=== PATIENT | male | born 1945 | race Caucasian/White ===

== ENCOUNTER → 2017-11-03 | Outpatient (CLI) | payer MEDICARE ==
--- NOTE | 2017-11-03 16:14 | XR ---
Lumbar spine HISTORY: Low back pain 3 views of the lumbar spine Lumbar vertebral bodies show preserved height and alignment. Bone mineralization is reduced. There is multilevel spondylosis. Loss of disc height present L5-S1 and L1-2. Sclerosis present in the posteri or elements of the lower lumbar spine. There are vascular calcifications are IMPRESSION: Degenerative disc disease. Osteopenia.
== END | disposition home or self-care (01) ==
LOC: RADXRYALE 13:09
PROVIDERS: ATTEND Internal Medicine
DX: M51.36 Other intervertebral disc degeneration, lumbar region (principal); M85.88 Other specified disorders of bone density and structure, other site
CPT/HCPCS: 72100

== ENCOUNTER 2018-07-06 16:02 | Inpatient (IN) | payer MEDICARE ==
[2018-07-06] MEDS ORDERED: SODIUM CHLORIDE 0.9% 1,000 ML IV STA (16:16)
[2018-07-06] MEDS ORDERED: MORPHINE SULFATE 4 MG/ML SYRINGE IV PRN (16:57)
[2018-07-06] MEDS ORDERED: NITROGLYCERIN SL TABS 0.4 MG TAB SUBLINGUAL PRN (16:57)
--- NOTE | 2018-07-06 16:59 | ED ---
Arrhythmia/Palpitations HPI - General Chief Complaint: Arrhythmia/Palpitations Stated Complaint: DIFIBULATOR FIRED Time Seen by Provider: 07/06/18 16:15 Source: patient, RN notes reviewed, old records reviewed Mode of arrival: ambulatory Limitations: no limitations - History of Present Illness Initial Comments: This is a 72-year-old male the ER for evaluation presents today for evaluation regarding near syncopal event the fibrillator firing. Patient also is very short of breath, he is a transfer patient from [facility], [facility] he did have positive history of PE positive current PE. MD Complaint: palpitations -: hour(s) Context: occurred during rest, occurred during exertion, AICD discharge Arrhythmia History: on anti-coagulants, pacemaker Associated Symptoms: chest pain, shortness of breath, near-syncope - Related Data Home Medications Medication Instructions Recorded Confirmed Diltiazem Cd [Cardizem CD] 180 mg PO QAM 02/23/16 07/06/18 Furosemide [Lasix] 20 mg PO BID 02/23/16 07/06/18 Rivaroxaban [Xarelto] 15 mg PO W/BRKFST 07/06/18 07/06/18 Previous Rx's Medication Instructions Recorded Carvedilol [Coreg] 25 mg PO BID #60 tab 06/27/15 Allergies Allergy/AdvReac Type Severity Reaction Status Date / Time No Known Allergies Allergy Verified 07/06/18 17:12 Review of Systems ROS Statement: Those systems with pertinent positive or pertinent negative responses have been documented in the HPI. ROS Other: All systems not noted in ROS Statement are negative. Past Medical History Past Medical History: Myocardial Infarction (non Q-wave), Osteoarthritis (OA) Additional Past Medical History / Comment(s): SEE DR SAXENA'S H&P Last Myocardial Infarction Date:: 07/2014 History of Any Multi-Drug Resistant Organisms: None Reported Past Surgical History: AICD, Appendectomy, Heart Catheterization, Tonsillectomy Past Anesthesia/Blood Transfusion Reactions: No Reported Reaction Type of Cardiac Device: AICD Device Placement Date:: 06/16/15 Past Psychological History: No Psychological Hx Reported Smoking Status: Former smoker Past Alcohol Use History: Rare Past Drug Use History: None Reported - Past Family History Mother Family Medical History: No Reported History Sister(s) Family Medical History: Deep Vein Thrombosis (DVT) General Exam Limitations: no limitations General appearance: alert, in no apparent distress, anxious Head exam: Present: atraumatic, normocephalic, normal inspection Eye exam: Present: normal appearance, PERRL, EOMI. Absent: scleral icterus, conjunctival injection, periorbital swelling ENT exam: Present: normal exam, mucous membranes moist Neck exam: Present: normal inspection. Absent: tenderness, meningismus, lympha denopathy Respiratory exam: Present: normal lung sounds bilaterally. Absent: respiratory distress, wheezes, rales, rhonchi, stridor Cardiovascular Exam: Present: regular rate, normal rhythm, normal heart sounds. Absent: systolic murmur, diastolic murmur, rubs, gallop, clicks GI/Abdominal exam: Present: soft, normal bowel sounds. Absent: distended, tenderness, guarding, rebound, rigid Extremities exam: Present: normal inspection, full ROM, normal capillary refill. Absent: tenderness, pedal edema, joint swelling, calf tenderness Back exam: Present: normal inspection Neurological exam: Present: alert, oriented X3, CN II-XII intact Psychiatric exam: Present: normal affect, normal mood Skin exam: Present: warm, dry, intact, normal color. Absent: rash Course Vital Signs 07/06/18 07/06/18 07/06/18 16:04 17:28 17:29 Temperature 98.0 F Pulse Rate 80 70 75 Pulse Rate [ Pulse Oximetery ] Respiratory 18 18 Rate Blood Pressure 113/100 113/74 Blood Pressure [Right Arm] O2 Sat by Pulse 96 95 Oximetry 07/06/18 07/06/18 07/06/18 17:30 18:00 18:30 Temperature Pulse Rate 72 83 73 Pulse Rate [ Pulse Oximetery ] Respiratory Rate Blood Pressure 114/77 114/93 127/89 Blood Pressure [Right Arm] O2 Sat by Pulse 97 91 L 99 Oximetry 07/06/18 07/06/18 07/06/18 18:43 19:00 19:13 Temperature 98.5 F Pulse Rate 73 87 Pulse Rate [ 80 Pulse Oximetery ] Respiratory 18 Rate Blood Pressure 127/89 144/90 Blood Pressure 131/74 [Right Arm] O2 Sat by Pulse 99 97 Oximetry - Reevaluation(s) Reevaluation #1: Medical record reviewed as well as transferring paperwork Patient informed of multiple findings. Questions answered Medical Decision Making - Medical Decision Making 72 male the ER for evaluation, patient does say for positive fever positive fibular firing. Patient is to be admitted to continue current anticoagulation, breathing treatments as a severe pain control as necessary. - Lab Data Result diagrams: 07/06/18 17:13 07/06/18 17:13 - EKG Data -: EKG Interpreted by Me (EKG shows sinus rhythm rate of 72, NH 152, QRS 90, QTc 446) - Radiology Data Radiology results: report reviewed (Ultrasound appears negative for DVT currently likely PAD), image reviewed Critical Care Time Critical Care Time: Yes Total Critical Care Time: 31 Disposition Clinical Impression: CAD (coronary artery disease), Cardiac defibrillator in place, Defibrillator discharge, Bilateral pulmonary embolism, Near syncope Disposition: ADMITTED IP TO THIS [facility] Condition: Serious Is patient prescribed a controlled substance at d/c from ED?: No
[2018-07-06 17:38] LABS: Basophils % (A) 0 %; Eosinophils # (A) 0.1 k/uL (0-0.7); Eosinophils % (A) 1 %; HCT 46.8 % (39.0-53.0); HGB 14.3 gm/dL (13.0-17.5); Hypochromasia Moderate; Lymphocytes % (A) 9 %; MCH 29.4 pg (25.0-35.0); MCHC 30.5 g/dL (31.0-37.0); MCV 96.4 fL (80.0-100.0); Mean Platelet Volume 6.8; Monocytes % (A) 8 %; Neutrophils # (A) 9.6 k/uL (1.3-7.7); Neutrophils % (A) 79 %; Platelet Count 159 k/uL (150-450); RBC 4.86 m/uL (4.30-5.90); RDW 15.8 % (11.5-15.5); WBC 12.1 k/uL (3.8-10.6)
[2018-07-06 17:45] LABS: Albumin 3.6 g/dL (3.5-5.0); Calcium 8.7 mg/dL (8.4-10.2); Phosphorus 5.2 mg/dL (2.5-4.5); Potassium 4.9 mmol/L (3.5-5.1); Total Bilirubin 0.9 mg/dL (0.2-1.3); Total Protein 6.7 g/dL (6.3-8.2)
--- NOTE | 2018-07-06 19:51 | US ---
EXAMINATION TYPE: US venous doppler duplex LE RT DATE OF EXAM: 07/06/2018 7:39 PM COMPARISON: Right lower extremity venous ultrasound December 01, 2015 CLINICAL HISTORY: Pain. Right leg pain and numbness. SIDE PERFORMED: Right TECHNIQUE: The lower extremity deep venous system is examined utilizing real time linear array sonog clarisa with graded compression, doppler sonography and color-flow sonography. 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 Right Leg: Negative for DVT Grayscale, color doppler, spectral doppler imaging performed of the deep veins of the right lower ext remity. There is normal flow, compressibility, vascular waveforms. IMPRESSION: No acute DVT in the right lower extremity. Technologist notes no visualized flow in por tions of right common femoral and superficial femoral arteries likely product of underlying PAD. Kaelyn elate clinically. Dedicated lower extremity arterial ultrasound or RAY can be performed to further ev aluate.
[2018-07-06 22:25] VITALS: BMI 34.9
[2018-07-07] MEDS ORDERED: RIVAROXABAN 15 MG TAB PO SCH (07:30)
[2018-07-07] MEDS ORDERED: CARVEDILOL 12.5 MG TAB PO SCH (07:30)
[2018-07-07] MEDS ORDERED: DILTIAZEM CD 180 MG CAP.ER.24H PO SCH (09:00)
[2018-07-07] MEDS: ASPIRIN 325 MG TAB PO SCH (09:02)
[2018-07-07] MEDS: RIVAROXABAN 15 MG TAB PO SCH (09:02)
[2018-07-07] MEDS: CARVEDILOL 12.5 MG TAB PO SCH ×2 (09:03→18:27)
[2018-07-07] MEDS: FUROSEMIDE 40 MG TAB PO SCH ×3 (09:03→21:31)
--- NOTE | 2018-07-07 11:25 | P.CRDCN ---
History of Present Illness Consult date: 07/07/18 History of present illness: This is a 72-year-old gentleman with history of ischemic heart disease and ischemic cardiomyopathy. Patient had a cardiac catheterization in [address] Hoang and was found to have total occlusion of the LAD and also right coronary artery. He was advised in [facility] medical the time. Subsequently, patient had a prophylactic AICD implantation. He is being followed with Dr. BRIAN Sun. Patient claims that has been compliant with his medications. Yesterday patient went to [facility] after patient had firing from the AICD 3 at home. Apparently patient woke up in the morning and started having some numbness in the right arm. Patient could not feel anything. He was trying to walk off the sensation and apparently became weak and fell to the ground. He claims that he had firing from the AICD 3. A tight to get up and was unable to get up. He walked to his front porch and apparently one of the tank truck loader help him. Paramedics were called and subsequently was taken to [facility]. He denied any chest pain or shortness of breath. In the [facility] patient had a computed tomography scan because of the high d-dimer. There was evidence of possible pulmonary embolus and also possible clot in the left ventricle. He is advised to be transferred to [facility]. Initially patient refused because of the cost for the ambulance. Finally, he was convinced she was transferred here. Since coming here patient has been stable. His EKG showed sinus rhythm. His cardiac enzymes showed a mildly elevated troponin 2. Most probably from the AICD firing. Patient also had a venous duplex study which did not reveal any significant DVT. There is evidence of possible peripheral vascular disease. By the time patient went to [facility], patient's weakness, numbness in the left leg improved. He claims that he is feeling some tingling sensation now. Patient has been on Xa relto. We'll go ahead and introduce device and get an echocardiogram. A computed tomography scan of the head to be constricted to rule out possibility of any CVA. Patient also minute pulmonary evaluation. Further examination depend upon clinical course Review of Systems REVIEW OF SYSTEMS: CONSTITUTIONAL:. Patient is doing well. No complaints of fever or chills EYES: Denies diplopia, blurring of vision EARS, NOSE, MOUTH, THROAT: Denies headaches, denies sore throat. CARDIOVASCULAR: As per HPI RESPIRATORY: Denies shortness of breath, denies cough. GASTROINTESTINAL: Denies change in appetite, denies abdominal pain, denies diarrhea GENITOURINARY: Denies hematuria, denies infections. MUSKULOSKELETAL: Denies pain, denies swelling. Denies any cramps or claudicat ion INTEGUMENTARY: Denies rash, denies eczema. NEUROLOGICAL: Complains of mild numbness and tingling in the right leg PSYCHIATRIC: Denies anxiety, denies depression. HEMATOLOGIC/LYMPHATIC: Denies any bleeding, denies enlarged lymph nodes. Past Medical History Past Medical History: Myocardial Infarction (non Q-wave), Osteoarthritis (OA) Additional Past Medical History / Comment(s): SEE DR SAXENA'S H&P Last Myocardial Infarction Date:: 07/2014 History of Any Multi-Drug Resistant Organisms: None Reported Past Surgical History: AICD, Appendectomy, Heart Catheterization, Tonsillectomy Past Anesthesia/Blood Transfusion Reactions: No Reported Reaction Type of Cardiac Device: AICD Device Placement Date:: 06/16/15 Past Psychological History: No Psychological Hx Reported Smoking Status: Former smoker Past Alcohol Use History: Rare Past Drug Use History: None Reported - Past Family History Mother Family Medical History: No Reported History Sister(s) Family Medical History: Deep Vein Thrombosis (DVT) Medications and Allergies Home Medications Medication Instructions Recorded Confirmed Type Carvedilol [Coreg] 25 mg PO BID #60 tab 06/27/15 07/06/18 Rx Diltiazem Cd [Cardizem CD] 180 mg PO QAM 02/23/16 07/06/18 History Furosemide [Lasix] 20 mg PO BID 02/23/16 07/06/18 History Rivaroxaban [Xarelto] 15 mg PO W/BRKFST 07/06/18 07/06/18 History Allergies Allergy/AdvReac Type Severity Reaction Status Date / Time No Known Allergies Allergy Verified 07/06/18 17:12 Physical Exam Vitals: Vital Signs Temp Pulse Pulse Resp BP BP Pulse Ox 07/07/18 08:00 98.4 F 78 18 112/63 97 07/07/18 04:00 97.9 F 82 18 129/65 95 07/06/18 23:51 79 18 126/60 96 07/06/18 20:00 98 F 77 18 135/72 95 07/06/18 19:19 98.0 F 87 18 144/90 99 07/06/18 19:13 98.5 F 80 18 131/74 97 07/06/18 19:00 87 144/90 07/06/18 18:43 73 127/89 99 07/06/18 18:30 73 127/89 99 07/06/18 18:00 83 114/93 91 L 07/06/18 17:30 72 114/77 97 07/06/18 17:29 75 18 113/74 95 07/06/18 17:28 70 07/06/18 16:04 98.0 F 80 18 113/100 96 Intake and Output 07/06/18 07/07/18 07/07/18 22:59 06:59 14:59 Intake Total 0 300 Balance 0 300 Intake: IV 300 Sodium Chloride 0.9% 1, 300 000 ml @ 100 mls/hr IV . Q10H STA Rx#:[id number] Amount of Fluid Infused ( 0 ml) Other: Weight 92.397 kg 90.9 kg GENERAL EXAM: Patient is alert and oriented and doesn't appear to be in any a cute distress HEENT: Normocephalic. Normal reaction of pupils, equal size, normal range of extraocular motion. No erythema or exudates in the throat. NECK: No masses, no nuchal rigidity. CHEST: No chest wall deformity. LUNGS: Equal air entry with no crackles or wheeze. Scattered rhonchi HEART: S1 and S2 normal with no audible mumurs or gallops. Regular rhythm, femorals equal on both sides.. ABDOMEN: No hepatosplenomegaly, normal bowel sounds, no guarding or rigidity. SKIN: No rashes CENTRAL NERVOUS SYSTEM: No focal deficits. EXTREMITIES: No cyanosis, clubbing or edema. Results 07/06/18 17:13 07/06/18 17:13 Cardiac Enzymes 07/06/18 07/06/18 07/06/18 Range/Units 17:13 17:13 23:42 AST 33 (17-59) U/L Troponin I 0.926 H* 0.655 H* (0.000-0.034) ng/mL CBC 07/06/18 Range/Units 17:13 WBC 12.1 H (3.8-10.6) k/uL RBC 4.86 (4.30-5.90) m/uL Hgb 14.3 (13.0-17.5) gm/dL Hct 46.8 (39.0-53.0) % Plt Count 159 (150-450) k/uL Comprehensive Metabolic Panel 07/06/18 Range/Units 17:13 Sodium 142 (137-145) mmol/L Potassium 4.9 (3.5-5.1) mmol/L Chloride 106 (98-107) mmol/L Carbon Dioxide 29 (22-30) mmol/L BUN 24 H (9-20) mg/dL Creatinine 1.14 (0.66-1.25) mg/dL Glucose 89 (74-99) mg/dL Calcium 8.7 (8.4-10.2) mg/dL AST 33 (17-59) U/L ALT 33 (21-72) U/L Alkaline Phosphatase 81 (38-126) U/L Total Protein 6.7 (6.3-8.2) g/dL Albumin 3.6 (3.5-5.0) g/dL Current Medications Generic Name Dose Route Start Last Admin Trade Name Freq PRN Reason Stop Dose Admin Aspirin 325 mg 07/07/18 09:00 07/07/18 09:02 Aspirin PO 325 mg DAILY HILARY Administration Carvedilol 25 mg 07/07/18 08:00 07/07/18 09:03 Coreg PO 25 mg AC-BID HILARY Administration Diltiazem HCl 180 mg 07/07/18 09:00 07/07/18 09:02 Cardizem Cd PO 180 mg QAM HILARY Administration Furosemide 20 mg 07/07/18 09:00 07/07/18 09:03 Lasix PO 20 mg BID HILARY Administration Morphine Sulfate 4 mg 07/06/18 16:57 Morphine Sulfate (Inj) IV Q4HR PRN Chest Pain Nitroglycerin 0.4 mg 07/06/18 16:57 Nitrostat SUBLINGUAL Q5M PRN Chest Pain Rivaroxaban 15 mg 07/07/18 08:00 07/07/18 09:02 Xarelto PO 15 mg W/BRKFST HILARY Administration Intake and Output 07/06/18 07/07/18 07/07/18 22:59 06:59 14:59 Intake Total 0 300 Balance 0 300 Intake: IV 300 Sodium Chloride 0.9% 1, 300 000 ml @ 100 mls/hr IV . Q10H STA Rx#:[id number] Amount of Fluid Infused ( 0 ml) Other: Weight 92.397 kg 90.9 kg 07/06/18 17:13 07/06/18 17:13 EKG Interpretations (text) Sinus rhythm with possible old anterior and inferior wall SC Assessment and Plan (1) Bilateral pulmonary embolism Current Visit: Yes Status: Acute Code(s): I26.99 - OTHER PULMONARY EMBOLISM WITHOUT ACUTE COR PULMONALE SNOMED Code(s): 93219794 (2) CAD (coronary artery disease) Current Visit: Yes Status: Acute Code(s): I25.10 - ATHSCL HEART DISEASE OF [place] CORONARY ARTERY W/O ANG PCTRS SNOMED Code(s): 04680277 (3) Defibrillator discharge Current Visit: Yes Status: Acute Code(s): Z45.02 - ENCNTR FOR ADJUST AND MGMT OF AUTOMATIC IMPLNTBL CARD DEFIB SNOMED Code(s): 957539322 (4) Afib Current Visit: No Status: Acute Code(s): I48.91 - UNSPECIFIED ATRIAL FIBRILL ATION SNOMED Code(s): 99349871 (5) Cardiomyopathy Current Visit: No Status: Acute Code(s): I42.9 - CARDIOMYOPATHY, UNSPECIFIED SNOMED Code(s): 90631148 (6) HTN (hypertension) Current Visit: No Status: Acute Code(s): I10 - ESSENTIAL (PRIMARY) HYPERTENSION SNOMED Code(s): 60736327 Plan: Pulmonary evaluation for further managemen of Pulmonary emboli, in spite of being on anti-cognition therapy. We'll Interrogate the device to assess the nature of her AICD discharge. We'll get an echocardiogram to assess LV function. May consider neurology evaluation because of weakness and numbness in the right leg. Consider computed tomography scan of the head. Further recommendations depend upon the clinical course.
[2018-07-07] MEDS ORDERED: MORPHINE ORAL SOLN 10 MG/5 ML CUP PO PRN (12:00)
--- NOTE | 2018-07-07 12:33 | ECHOF ---
Referral Reason:Chest pain and cardiomyopathy MEASUREMENTS -------- HEIGHT: 162.6 cm WEIGHT: 90.7 kg BP: 99/54 RVIDd: 3.6 cm (< 3.3) IVSd: 0.8 cm (0.6 - 1.1) LVIDd: 5.4 cm (3.9 - 5.3) LVPWd: 0.8 cm (0.6 - 1.1) IVSs: 1.0 cm LVIDs: 4.7 cm LVPWs: 1.0 cm LAESV Index (A-L): 30.47 ml/m Ao Diam: 3.4 cm (2.0 - 3.7) AV Cusp: 2.0 cm (1.5 - 2.6) LA Diam: 3.4 cm (2.7 - 3.8) MV E Cirilo: 0.81 m/s MV DecT: 353 ms MV A Cirilo: 0.49 m/s MV E/A Ratio: 1.67 AR PHT: 558 ms RAP: 5.00 mmHg RVSP: 35.55 mmHg FINDINGS -------- Sinus rhythm. Pacerwire seen in RV and RA. This was a technically adequate study. The left ventricular size is normal. Left ventricular wall thickness is normal. Overall left vent ricular systolic function is severely impaired with, an EF between 20 - 25 %. Basal anterior LV wal l motion is akinetic. Mid anterior LV wall motion is akinetic. Mid lateral LV wall motion is ak inetic. Mid inferior LV wall motion is akinetic. Mid anteroseptal LV wall motion is akinetic. Apical anterior LV wall motion is akinetic. Apical lateral LV wall motion is akinetic. Apical inferior LV wall motion is akinetic. Apical septum LV wall motion is akinetic. The right ventricle is mildly enlarged. LA is midly dilated 29-33ml/m2. The right atrial size is normal. Electronic pacemaker lead seen in the right ventricular cavity. 3 ml of Lumason was utilized for enhancement of images. There is mild aortic valve sclerosis. There is [id number] aortic regurgitation. There is no evidence of aortic stenosis. The mitral valve is normal. Mild mitral regurgitation is present. Mild tricuspid regurgitation present. There is mild pulmonary hypertension. The right ventricular systolic pressure, as measured by Doppler, is 35.55mmHg. The pulmonic valve was not well visualized. There is no pulmonic regurgitation present. The aortic root size is normal. Normal inferior vena cava with normal inspiratory collapse consistent with estimated right atrial pre ssure of 5 mmHg. There is no pericardial effusion. CONCLUSIONS -------- 1. Sinus rhythm. 2. This was a technically adequate study. 3. The left ventricular size is normal. 4. Left ventricular wall thickness is normal. 5. Overall left ventricular systolic function is severely impaired with, an EF between 20 - 25 %. 6. Basal anterior LV wall motion is akinetic. 7. Mid anterior LV wall motion is akinetic. 8. Mid lateral LV wall motion is akinetic. 9. Mid inferior LV wall motion is akinetic. 10. Mid anteroseptal LV wall motion is akinetic. 11. Apical anterior LV wall motion is akinetic. 12. Apical lateral LV wall motion is akinetic. 13. Apical inferior LV wall motion is akinetic. 14. Apical septum LV wall motion is akinetic. 15. The right ventricle is mildly enlarged. 16. LA is midly dilated 29-33ml/m2. 17. 3 ml of Lumason was utilized for enhancement of images. 18. There is mild aortic valve sclerosis. 19. There is [id number] aortic regurgitation. 20. Mild mitral regurgitation is present. 21. Mild tricuspid regurgitation present. 22. There is mild pulmonary hypertension. 23. The pulmonic valve was not well visualized. 24. The aortic root size is normal. 25. There is no pericardial effusion. VIDEO PRESENTATION OPERATOR: Ron Powell RDCS
--- NOTE | 2018-07-07 16:38 | P.HPIM ---
History of Present Illness H&P Date: 07/07/18 Chief Complaint: AICD discharge Patient is a 72-year-old male with a known history of ischemic cardiomyopathy ejection fraction 20-25% status post AICD, paroxysmal atrial fibrillation on anticoagulation with xarelto and osteoarthritis initially presented to [facility] with complaints of AICD discharge 3 at home. Patient says that she felt severe squeezing pain at the right calf and leg when he woke up in the morning yesterday. Patient felt numb and could not feel anything. He felt tightness in the leg and could not able to get up and has crawled to the door. At the same time he had AICD discharge 3. Eventually patient reached his porch and was waving to help. One of the milk truck driver help him and EMS was called. Patient was initially taken to [facility]. Patient denied any complaints of chest pain or shortness of breath. EKG done at [facility] showed normal sinus rhythm. No ST-T wave elevation. D-dimer is elevated. Patient had CT angiogram of the chest which showed left upper lobe first branch 2 cm pulmonary embolus and also small lower lobe embolus. There is also concern for apical cardiac thrombus. Patient was also found have 4.2 cm ascending aortic aneurysm. Patient was transferred to [facility] for further management with 2-D echocardiogram and cardiology evaluation. Lower extremity venous duplex scan showed no acute DVT in the right lower extremity. Technologist notes no visualized flow in the portions of right common femoral and superficial femoral arteries likely product of underlying PAD. Troponin 0.926 and 0.655 Review of Systems Constitutional: Patient denies any fever or chills . No generalized weakness or weight loss. Abdomen: Patient denied nausea vomiting and diarrhea and abdominal pain. Cardiovascular: Patient denies any chest pain or short of breath no palpitations. Respiratory: patient denied any cough is from production. No shortness of breath Neurologic: Patient denied any numbness or tingling headache. Musculoskeletal: Patient denies any complaints of joint swelling or deformity. Right calf pain and numbness Skin: Negative Psychiatric: Negative Endocrine: No heat or cold intolerance. No recent weight gain. Genitourinary: No dysuria or hematuria. All other 14 point ROS negative except the above Past Medical History Past Medical History: Myocardial Infarction (non Q-wave), Osteoarthritis (OA) Additional Past Medical History / Comment(s): SEE DR SAXENA'S H&P Last Myocardial Infarction Date:: 07/2014 History of Any Multi-Drug Resistant Organisms: None Reported Past Surgical History: AICD, Appendectomy, Heart Catheterization, Tonsillectomy Past Anesthesia/Blood Transfusion Reactions: No Reported Reaction Type of Cardiac Device: AICD Device Placement Date:: 06/16/15 Past Psychological History: No Psychological Hx Reported Smoking Status: Former smoker Past Alcohol Use History: Rare Past Drug Use History: None Reported - Past Family History Mother Family Medical History: No Reported History Sister(s) Family Medical History: Deep Vein Thrombosis (DVT) Medications and Allergies Home Medications Medication Instructions Recorded Confirmed Type Carvedilol [Coreg] 25 mg PO BID #60 tab 06/27/15 07/06/18 Rx Diltiazem Cd [Cardizem CD] 180 mg PO QAM 02/23/16 07/06/18 History Furosemide [Lasix] 20 mg PO BID 02/23/16 07/06/18 History Rivaroxaban [Xarelto] 15 mg PO W/BRKFST 07/06/18 07/06/18 History Allergies Allergy/AdvReac Type Severity Reaction Status Date / Time No Known Allergies Allergy Verified 07/06/18 17:12 Physical Exam Vitals: Vital Signs Temp Pulse Pulse Resp BP BP Pulse Ox 07/07/18 04:00 97.9 F 82 18 129/65 95 07/06/18 23:51 79 18 126/60 96 07/06/18 20:00 98 F 77 18 135/72 95 07/06/18 19:19 98.0 F 87 18 144/90 99 07/06/18 19:13 98.5 F 80 18 131/74 97 07/06/18 19:00 87 144/90 07/06/18 18:43 73 127/89 99 07/06/18 18:30 73 127/89 99 07/06/18 18:00 83 114/93 91 L 07/06/18 17:30 72 114/77 97 07/06/18 17:29 75 18 113/74 95 07/06/18 17:28 70 07/06/18 16:04 98.0 F 80 18 113/100 96 Intake and Output 07/06/18 07/07/18 07/07/18 22:59 06:59 14:59 Intake Total 0 300 Balance 0 300 Intake: IV 300 Sodium Chloride 0.9% 1, 300 000 ml @ 100 mls/hr IV . Q10H STA Rx#:[id number] Amount of Fluid Infused ( 0 ml) Other: Weight 92.397 kg 90.9 kg PHYSICAL EXAMINATION: Patient is lying in the bed comfortably, no acute distress, awake alert and oriented.. HEENT: Normocephalic. Neck is supple. Pupils reactive. Nostrils clear. Oral cavity is moist. Ears reveal no drainage. Neck reveals no JVD, carotid bruits, or thyromegaly. CHEST EXAMINATION: Trachea is central. Symmetrical expansion. Lung lopez clear to auscultation and percussion. CARDIAC: Normal S1, S2 with no gallops. No murmurs ABDOMEN: Soft. Bowel sounds normal. No organomegaly. No abdominal bruits. Extremities: reveal no edema. Right calf tenderness, No clubbing or cyanosis Neurologically awake, alert, oriented x3 with well-coordinated movements. No focal deficits noted Skin: No rash or skin lesions. Psychiatric: Coperative. Nonsuicidal Musculoskeletal: No joint swelling or deformity. Normal range of motion. Results CBC & Chem 7: 07/06/18 17:13 07/06/18 17:13 Labs: Abnormal Lab Results - Last 24 Hours (Table) 07/06/18 07/06/18 07/06/18 Range/Units 17:13 17:13 17:13 WBC 12.1 H (3.8-10.6) k/uL MCHC 30.5 L (31.0-37.0) g/dL RDW 15.8 H (11.5-15.5) % Neutrophils # 9.6 H (1.3-7.7) k/uL BUN 24 H (9-20) mg/dL Phosphorus 5.2 H (2.5-4.5) mg/dL Troponin I 0.926 H* (0.000-0.034) ng/mL 07/06/18 Range/Units 23:42 WBC (3.8-10.6) k/uL MCHC (31.0-37.0) g/dL RDW (11.5-15.5) % Neutrophils # (1.3-7.7) k/uL BUN (9-20) mg/dL Phosphorus (2.5-4.5) mg/dL Troponin I 0.655 H* (0.000-0.034) ng/mL CT scan - chest: report reviewed Venous US: report reviewed Thrombosis Risk Factor Assmnt - DVT/VTE Prophylaxis DVT/VTE Prophylaxis: Pharmacologic Prophylaxis ordered - Choose All That Apply Any of the Below Risk Factors Present?: Yes Each Factor Represents 1 point: Acute OH, Obesity (BMI >25) Other Risk Factors: Yes Each Risk Factor Represents 2 Points: Age 61-74 years Thrombosis Risk Factor Assessment Total Risk Factor Score: 4 Thrombosis Risk Factor Assessment Level: Moderate Risk Assessment and Plan Assessment: Acute left upper lobe 2 cm pulmonary embolus despite being on anticoagulation with xarelto Status post AICD discharge 3 Right lower extremity pain possible peripheral vascular disease. Duplex scan negative for DVT. Ascending aortic aneurysm 4.2 cm Ischemic cardiomyopathy ejection fraction 20%.Status post AICD Previous history of smoking Elevated d-dimer Elevated troponin likely due to AICD firing. Osteoarthritis Plan: Patient will be continued on telemetry monitoring. Continue with anticoagulation. Cardiology is following. Hematology will be consulted due to acute pulmonary embolism despite him being on anticoagulation. 2-D echocardiogram was ordered. AICD interrogation. Lower extremities arterial s tudy for peripheral vascular disease and vascular surgery will be consulted. Continue with home medications and further recommendations based on the clinical course. Discussed with the patient and his at bedside in detail. Time with Patient: Greater than 30
[2018-07-07] MEDS: AMIODARONE 200 MG TAB PO SCH (16:41)
[2018-07-08] MEDS: AMIODARONE 200 MG TAB PO SCH ×4 (00:22→21:34)
[2018-07-08] MEDS: CARVEDILOL 12.5 MG TAB PO SCH ×2 (05:59→18:11)
[2018-07-08] MEDS: RIVAROXABAN 15 MG TAB PO SCH (06:16)
[2018-07-08 07:19] LABS: Basophils % (A) 0 %; Eosinophils # (A) 0.2 k/uL (0-0.7); Eosinophils % (A) 2 %; HCT 40.3 % (39.0-53.0); HGB 12.2 gm/dL (13.0-17.5); Hypochromasia Moderate; Lymphocytes # (A) 0.9 k/uL (1.0-4.8); Lymphocytes % (A) 10 %; MCH 29.3 pg (25.0-35.0); MCHC 30.2 g/dL (31.0-37.0); MCV 96.8 fL (80.0-100.0); Mean Platelet Volume 7.3; Monocytes # (A) 0.9 k/uL (0-1.0); Monocytes % (A) 10 %; Neutrophils % (A) 76 %; Platelet Count 149 k/uL (150-450); RBC 4.16 m/uL (4.30-5.90); RDW 15.6 % (11.5-15.5); WBC 9.2 k/uL (3.8-10.6)
[2018-07-08 07:35] LABS: Calcium 8.8 mg/dL (8.4-10.2); Potassium 5.3 mmol/L (3.5-5.1)
[2018-07-08] MEDS: ASPIRIN 325 MG TAB PO SCH (10:06)
[2018-07-08] MEDS: FUROSEMIDE 40 MG TAB PO SCH (10:06)
--- NOTE | 2018-07-08 13:44 | CONS ---
CONSULTATION This is a pulmonary critical care consult dated July 08, 2018. This is a 72-year-old male who was admitted to the hospital from [place] for some issues with his leg. He apparently states that he was sitting in his chair taking taking a snooze and when he woke up to move about, he felt like his leg was numb or . The patient states that for that reason he went into the hospital to be evaluated. The patient really denies any other complaints including shortness of breath, chest tightness, wheezing, cough or phlegm production. No fever or chills. No nausea, vomiting or diarrhea. Apparently on the way to the hospital, his defibrillator went off a couple times and for that reason he was evaluated in the emergency room for that and for the leg issue. The patient apparently had a CT angiogram over at [facility] which showed pulmonary emboli in the left lung x2. Anyway, the patient had been on Xarelto and is recently being switched over to Eliquis. There is some question as to whether or not he has been compliant with the Xarelto and that may have led to the pulmonary embolism. Anyway, the patient was started on Eliquis today. It is unusual that he would have a blood clot developed while on blood thinner. It may be that he was not taking it as prescribed. Again, he denies all other complaints including shortness of breath, chest pain, chest discomfort, palpitations, cough, wheezing and phlegm production. HOME MEDICATIONS: His home medications include Cardizem CD, Lasix, Xarelto, and Coreg. ALLERGIES: Allergies are denied. PAST MEDICAL HISTORY: His past medical history includes non ST-segment elevation myocardial infarction, DJD, previous AICD placement, appendectomy, heart catheterization, and tonsillectomy. He apparently has a very low ejection fraction and does also have a history of atrial fibrillation. SURGICAL HISTORY: As mentioned above. SOCIAL HISTORY: Social history is positive for previous tobacco use. Does not smoke currently. Alcohol use is rare. There is no illicit drug use. FAMILY HISTORY: There is a family history of deep venous thrombosis. The patient is not a particularly good historian and goes on and on about all sorts of unnecessary parts of the history. It is hard to keep him focused. REVIEW OF SYSTEMS: CONSTITUTIONAL: Negative. NEUROLOGIC: Leg numbness of the right leg, sort of a sensation. HEENT: Negative. CARDIOVASCULAR: Defibrillator discharge x2 or 3. PULMONARY: Negative. GI: Negative. : Negative. RHEUMATOLOGIC: Negative. IMMUNOLOGIC: Negative. ENDOCRINOLOGIC: Negative. DERMATOLOGIC: Negative. PHYSICAL EXAMINATION: Current vital signs are reviewed. Temperature is 98, heart rate 58, respiratory rate 18, blood pressure 103/69, mean 80 and 2 L saturation 98%. The patient appears in no acute distress. HEENT examination is grossly unremarkable. The patient is not requiring any supplemental oxygen. NECK: Supple. Full range of motion. No adenopathy or thyromegaly. Neck veins are flat. Cardiovascular examination reveals regular rhythm and rate. S1, S2 normal. A soft systolic murmur is noted. Lungs are clear. Breath sounds equal. No wheezes, rhonchi, or crackles. Abdomen is obese. Bowel sounds are heard. Extremities are intact. No cyanosis, clubbing, or edema. Skin without rash. Neurologic examination is brief but nonfocal. He does mention that he had a sensation that when the nurse gave him pills to take this morning in his left hand, his left hand felt weird to him. Labs are reviewed. White count 9.2, hemoglobin 12.2, hematocrit 40.3, platelet count 149,000. Sodium 139, potassium 5.3, chloride 102, CO2 is 31, BUN and creatinine were 38 and 1.63. Troponins were 0.926 and 0.655. The rest of the labs look okay. The patient had a venous Doppler study which was negative for DVT. The CT angiogram from the [facility] was reviewed. ASSESSMENT: 1. Pulmonary emboli, left lung x2, in a patient who was presumably on Xarelto, although there is some question as to his compliance. 2. Status post AICD placement. 3. Previous cardiac catheterization. 4. Cardiomyopathy. 5. History of chronic atrial fibrillation. 6. History of degenerative joint disease. 7. History of hypertension. PLAN: The patient currently is being switched from Xarelto to Eliquis. We will continue to follow. The Doppler study was negative for DVT in the right leg. He denies any long trips including car rides, boat ride, plane ride or train ride. The patient denies ever having a blood clot in the past. There is some mention of it in his medical record. He denies it though. There is some question as to whether or not the patient was taking the Xarelto as prescribed. Apparently, the did not dole out his medication. Anyway, the patient is somewhat of a poor historian. We explained to him the importance of taking his medication on a regular basis. He needs to take the blood thinner anyway because of his cardiomyopathy and atrial fibrillation. He should be on blood thinner probably for the rest of his life at this point. He is not having any respiratory issues at this time. We will continue to follow as needed. MMSAVANAL / IJN: [id number] / TOM
--- NOTE | 2018-07-08 13:45 | P.PN ---
Subjective Progress Note Date: 07/08/18 This is a 72-year-old gentleman with history of ischemic heart disease and ischemic cardiomyopathy. Patient had a cardiac catheterization [place] [address] Hoang and was found to have total occlusion of the LAD and also right coronary artery. He was advised in [facility] the time. Subsequently, mila alaniz had a prophylactic AICD implantation. He is being followed with Dr. BRIAN Sun. Patient claims that has been compliant with his medications. Yesterday patient went to [facility] after patient had firing from the AICD 3 at home. Apparently patient woke up in the morning and started having some numbness in the right arm. Patient could not feel anything. He was trying to walk off the sensation and apparently became weak and fell to the ground. He claims that he had firing from the AICD 3. A tight to get up and was unable to get up. He walked to his front porch and apparently one of the septic pump truck driver help him. Paramedics were called and subsequently was taken to [facility]. He denied any chest pain or shortness of breath. In the [facility] patient had a computed tomography scan because of the high d-dimer. There was evidence of possible pulmonary embolus and also possible clot in the left ventricle. He is advised to be transferred to [facility]. Initially patient refused because of the cost for the ambulance. Finally, he was convinced she was transferred here. Since coming here patient has been stable. His EKG showed sinus rhythm. His cardiac enzymes showed a mildly elevated troponin 2. Most probably from the AICD firing. Patient also had a venous duplex study which did not reveal any significant DVT. There is evidence of possible peripheral vascular disease. By the time patient went to [facility], patient's weakness, numbness in the left leg improved. He claims that he is feeling some tingling sensation now. Patient has been on Xarelto. We'll go ahead and introduce device and get an echocardiogram. A computed tomography scan of the head to be constricted to rule out possibility of any CVA. Patient also minute pulmonary evaluation. Further examination depend upon clinical course. 07/08/2018 Patient was seen and examined this morning, still complains of intermittent tingling in the right leg. Blood pressure 103/70 with a heart rate in the 50s, 90% on 2 L of oxygen. White blood cell count 9.2, hemoglobin 12.2, platelet count 149. Sodium 139, potassium 5.3, BUN 38 and creatinine 1.6, creatinine yesterday was 1.1. Echocardiogram with Doppler study revealed an ejection fraction of 20-25%, no evidence of any thrombus. Device was interrogated and showed atrial fibrillation with rapid ventricular response, patient was shocked for A. fib. Upon review of the rhythm strips, it does appear that the patient had another episode briefly of atrial fibrillation. We did have a discussion with oncology today regarding initiating anticoagulation, and they have given approval for the patient to be started on Eliquis. Patient was on a low-dose of Xarelto 15 mg daily at home, but we are quite unsure as to whether the patient was safely taking his medication or not. We will start the patient on Eliquis twice a day here for anticoagulation. Objective - Vital Signs Vital signs: Vital Signs Temp 98.0 F 07/08/18 11:45 Pulse 58 L 07/08/18 11:45 Resp 18 07/08/18 11:45 BP 103/69 07/08/18 11:45 Pulse Ox 98 07/08/18 11:45 Intake & Output 07/07/18 07/08/18 07/08/18 18:59 06:59 18:59 Intake Total 600 840 Output Total 200 Balance 400 840 Weight 91.6 kg Intake: Oral 600 840 Output: Urine 200 Other: # Voids 1 1 2 - Exam GENERAL EXAM: Patient is alert and oriented and doesn't appear to be in any acute distress HEENT: Normocephalic. Normal reaction of pupils, equal size, normal range of extraocular motion. No erythema or exudates in the throat. NECK: No masses, no nuchal rigidity. CHEST: No chest wall deformity. LUNGS: Equal air entry with no crackles or wheeze. Scattered rhonchi HEART: S1 and S2 normal with no audible mumurs or gallops. Regular rhythm, femorals equal on both sides.. ABDOMEN: No hepatosplenomegaly, normal bowel sounds, no guarding or rigidity. SKIN: No rashes CENTRAL NERVOUS SYSTEM: No focal deficits. EXTREMITIES: No cyanosis, clubbing or edema. - Labs CBC & Chem 7: 07/08/18 06:04 07/08/18 06:04 Labs: Abnormal Lab Results - Last 24 Hours (Table) 07/08/18 07/08/18 Range/Units 06:04 06:04 RBC 4.16 L (4.30-5.90) m/uL Hgb 12.2 L (13.0-17.5) gm/dL MCHC 30.2 L (31.0-37.0) g/dL RDW 15.6 H (11.5-15.5) % Plt Count 149 L (150-450) k/uL Lymphocytes # 0.9 L (1.0-4.8) k/uL Potassium 5.3 H (3.5-5.1) mmol/L Carbon Dioxide 31 H (22-30) mmol/L BUN 38 H (9-20) mg/dL Creatinine 1.63 H (0.66-1.25) mg/dL LDL Cholesterol, Calc 100 H (0-99) mg/dL HDL Cholesterol 29 L (40-60) mg/dL Assessment and Plan Plan: Assessment and plan #1 bilateral pulmonary embolism, we will consult pulmonary to confirm #2 coronary artery disease #3 AICD discharge for A. fib with RVR #4 paroxysmal atrial fibrillation #5 ischemic cardiomyopathy #6 hypertension Plan We will start the patient on Eliquis 5 mg one tablet by mouth twice a day. We will also recommend to consult pulmonary regarding pulmonary embolism. Lower extremity ultrasound was performed which is yet pending. Continue by mouth amiodarone, we will decrease the dose of Coreg to 12-1/2 mg one tablet by mouth twice a day today because of hypotension. DNP note has been reviewed, I agree with a documented findings and plan of care. Patient was seen and examined.
--- NOTE | 2018-07-08 14:33 | P.PN ---
Subjective Progress Note Date: 07/08/18 This is a 72-year-old gentleman with history of ischemic heart disease and ischemic cardiomyopathy. Patient had a cardiac catheterization [place] [address] Hoang and was found to have total occlusion of the LAD and also right coronary artery. He was advised in [facility] the time. Subsequently, mila alaniz had a prophylactic AICD implantation. He is being followed with Dr. BRIAN Sun. Patient claims that has been compliant with his medications. Yesterday patient went to [facility] after patient had firing from the AICD 3 at home. Apparently patient woke up in the morning and started having some numbness in the right arm. Patient could not feel anything. He was trying to walk off the sensation and apparently became weak and fell to the ground. He claims that he had firing from the AICD 3. A tight to get up and was unable to get up. He walked to his front porch and apparently one of the truck trailer mechanic help him. Paramedics were called and subsequently was taken to [facility]. He denied any chest pain or shortness of breath. In the [facility] patient had a computed tomography scan because of the high d-dimer. There was evidence of possible pulmonary embolus and also possible clot in the left ventricle. He is advised to be transferred to [facility]. Initially patient refused because of the cost for the ambulance. Finally, he was convinced she was transferred here. Since coming here patient has been stable. His EKG showed sinus rhythm. His cardiac enzymes showed a mildly elevated troponin 2. Most probably from the AICD firing. Patient also had a venous duplex study which did not reveal any significant DVT. There is evidence of possible peripheral vascular disease. By the time patient went to [facility], patient's weakness, numbness in the left leg improved. He claims that he is feeling some tingling sensation now. Patient has been on Xarelto. We'll go ahead and introduce device and get an echocardiogram. A computed tomography scan of the head to be constricted to rule out possibility of any CVA. Patient also minute pulmonary evaluation. Further examination depend upon clinical course. 07/08/2018 Patient was seen and examined today, we did have a discussion with him regarding regularly taking his medications at home. According to the patient he does state that at times he does not take his medications and sometimes a fall on the floor and he just doesn't take them. So it is unclear as to whether or not the patient had been regularly taking his Xarelto at home. We would request that pulmonary evaluate the patient regarding the pulmonary embolism. At this time he's been initiated on Eliquis. An echocardiogram with Doppler study was performed which revealed an EF of 20%, no evidence of any thrombus. I pressure 104/60 with a heart rate in the 60s, 98% on 2 L of oxygen. White blood cell count 9.2, hemoglobin 12.2, platelet count 149. Sodium 139, potassium 5.3, BUN 38 and creatinine 1.6 today. We will hold the Lasix from today and resume tomorrow. Decrease aspirin to 81 mg daily. Continue amiodarone. Objective - Vital Signs Vital signs: Vital Signs Temp 98.0 F 07/08/18 11:45 Pulse 58 L 07/08/18 11:45 Resp 18 07/08/18 11:45 BP 103/69 07/08/18 11:45 Pulse Ox 98 07/08/18 11:45 Intake & Output 07/07/18 07/08/18 07/08/18 18:59 06:59 18:59 Intake Total 600 840 Output Total 200 Balance 400 840 Weight 91.6 kg Intake: Oral 600 840 Output: Urine 200 Other: # Voids 1 1 2 - Exam GENERAL EXAM: Patient is alert and oriented and doesn't appear to be in any acute distress HEENT: Normocephalic. Normal reaction of pupils, equal size, normal range of extraocular motion. No erythema or exudates in the throat. NECK: No masses, no nuchal rigidity. CHEST: No chest wall deformity. LUNGS: Equal air entry with no crackles or wheeze. Scattered rhonchi HEART: S1 and S2 normal with no audible mumurs or gallops. Regular rhythm, femorals equal on both sides.. ABDOMEN: No hepatosplenomegaly, normal bowel sounds, no guarding or rigidity. SKIN: No rashes CENTRAL NERVOUS SYSTEM: No focal deficits. EXTREMITIES: No cyanosis, clubbing or edema. - Labs CBC & Chem 7: 07/08/18 06:04 07/08/18 06:04 Labs: Abnormal Lab Results - Last 24 Hours (Table) 07/08/18 07/08/18 Range/Units 06:04 06:04 RBC 4.16 L (4.30-5.90) m/uL Hgb 12.2 L (13.0-17.5) gm/dL MCHC 30.2 L (31.0-37.0) g/dL RDW 15.6 H (11.5-15.5) % Plt Count 149 L (150-450) k/uL Lymphocytes # 0.9 L (1.0-4.8) k/uL Potassium 5.3 H (3.5-5.1) mmol/L Carbon Dioxide 31 H (22-30) mmol/L BUN 38 H (9-20) mg/dL Creatinine 1.63 H (0.66-1.25) mg/dL LDL Cholesterol, Calc 100 H (0-99) mg/dL HDL Cholesterol 29 L (40-60) mg/dL Assessment and Plan Plan: Assessment and plan #1 bilateral pulmonary embolism, we will consult pulmonary to confirm #2 coronary artery disease #3 AICD discharge for A. fib with RVR #4 paroxysmal atrial fibrillation #5 ischemic cardiomyopathy #6 hypertension #7 medication noncompliance Plan From cardiology's perspective, we'll recommend to continue amiodarone, we will decrease aspirin 81 mg daily, patient will be initiated on Eliquis. DNP note has been reviewed, I agree with a documented findings and plan of care. Patient was seen and examined.
--- NOTE | 2018-07-08 23:26 | P.CONS ---
History of Present Illness - Reason for Consult Consult date: 07/08/18 Pulmonary Emoboli while on Anticoagulation Requesting physician: Kaylee Odell - Chief Complaint RLE Pain and weakness Review of Systems A 14 point review of systems assessed and completed and all negative except HPI Past Medical History Past Medical History: Myocardial Infarction (non Q-wave), Osteoarthritis (OA) Additional Past Medical History / Comment(s): SEE DR SAXENA'S H&P Last Myocardial Infarction Date:: 07/2014 History of Any Multi-Drug Resistant Organisms: None Reported Past Surgical History: AICD, Appendectomy, Heart Catheterization, Tonsillectomy Past Anesthesia/Blood Transfusion Reactions: No Reported Reaction Type of Cardiac Device: AICD Device Placement Date:: 06/16/15 Past Psychological History: No Psychological Hx Reported Smoking Status: Former smoker Past Alcohol Use History: Rare Past Drug Use History: None Reported - Past Family History Mother Family Medical History: No Reported History Sister(s) Family Medical History: Deep Vein Thrombosis (DVT) Medications and Allergies Home Medications Medication Instructions Recorded Confirmed Type Carvedilol [Coreg] 25 mg PO BID #60 tab 06/27/15 07/06/18 Rx Diltiazem Cd [Cardizem CD] 180 mg PO QAM 02/23/16 07/06/18 History Furosemide [Lasix] 20 mg PO BID 02/23/16 07/06/18 History Rivaroxaban [Xarelto] 15 mg PO W/BRKFST 07/06/18 07/06/18 History Allergies Allergy/AdvReac Type Severity Reaction Status Date / Time No Known Allergies Allergy Verified 07/06/18 17:12 Physical Exam Vitals: Vital Signs Temp Pulse Resp BP Pulse Ox 07/08/18 20:00 99.3 F 57 L 17 90/52 97 07/08/18 15:35 98.4 F 70 18 107/68 96 07/08/18 11:45 98.0 F 58 L 18 103/69 98 07/08/18 08:15 97.7 F 59 L 18 100/59 98 07/08/18 03:08 98.2 F 60 18 95/62 98 Intake and Output 07/08/18 07/08/18 07/09/18 14:59 22:59 06:59 Intake Total 840 180 Output Total 300 200 Balance 540 -20 Intake: Oral 840 180 Output: Urine 300 200 Other: # Voids 2 Gen: No acute distress, alert and oriented Head: NC/NT NEck Supple HEart: Irreg, Irreg Lungs: DIminished bibasilar, no increased effort Abdomen: SOft, Nondistended, Non tender Extremities: Mild generalized edema neurological: No motor deficits, RLE Sensory worse than LLE Results CBC & Chem 7: 07/08/18 06:04 07/08/18 06:04 Labs: Abnormal Lab Results - Last 24 Hours (Table) 07/08/18 07/08/18 Range/Units 06:04 06:04 RBC 4.16 L (4.30-5.90) m/uL Hgb 12.2 L (13.0-17.5) gm/dL MCHC 30.2 L (31.0-37.0) g/dL RDW 15.6 H (11.5-15.5) % Plt Count 149 L (150-450) k/uL Lymphocytes # 0.9 L (1.0-4.8) k/uL Potassium 5.3 H (3.5-5.1) mmol/L Carbon Dioxide 31 H (22-30) mmol/L BUN 38 H (9-20) mg/dL Creatinine 1.63 H (0.66-1.25) mg/dL LDL Cholesterol, Calc 100 H (0-99) mg/dL HDL Cholesterol 29 L (40-60) mg/dL Assessment and Plan Plan: Assessment and Recommendations: 1. Pulmonary Emboli: New findings diagnosed at outside Hospital - While on Xarelto 15mg PO Daily, unknown failure as unknown on how adherent as he states he does not know if he actually takes them daily - LE dopplers pending - Will change to full dose anticoagulation with Eliquis 10mg PO BID x7 days, then 5mg PO BID 2. Acute renal Insufficiency: - ELiquis treatment preferred choice with mild renal elevation - Monitoring daily 3. Complicated Cardiac History with A-fib: - Cardiology is following Physician Attest: I have completed the full history and physical and devloped the complete impression and plan and agree with above dictation, dictated as a scribe
[2018-07-09] MEDS: CARVEDILOL 12.5 MG TAB PO SCH ×2 (07:07→17:40)
[2018-07-09] MEDS: AMIODARONE 200 MG TAB PO SCH ×3 (08:53→21:05)
[2018-07-09] MEDS: ASPIRIN 81 MG PO SCH (08:53)
[2018-07-09] MEDS ORDERED: APIXABAN 5 MG TAB PO SCH (09:00)
--- NOTE | 2018-07-09 11:14 | P.PN ---
Progress Note - Text Progress Note Date: 07/09/18 This is a 72-year-old gentleman with history of ischemic cardiomyopathy, status post AICD placement. Patient was admitted to the hospital with numbness in the right leg and also evidence of firing from AICD. Interrogation of the AICD showed evidence of A. fib with RVR. Patient was initiated on amiodarone. Patient. Computed tomography scan is also showed evidence of pulmonary emboli. Patient was supposed to be on anticoagulation therapy and an Xarelto. It was changed to e liquis 5 mg by mouth twice a day. Patient was evaluated by lcac radar operator/navigator. He is also seen by fiber product cutting machine operator. At this point they advised. Continue with current medical therapy and make sure that patient adheres to a medical therapy. We'll continue amiodarone 200 mg by mouth 3 times a day for one week and subsequently cut back to twice daily for one week followed by once daily. Patient will have follow-up with Dr. BRIAN Sun. His creatinine went up to 1.6 yesterday. In going to get another BMP today. Patient is otherwise doing well. Denies any chest pain or shortness of breath. He had arterial duplex studies of the leg. The results are pending. Vascular consult also was requeste, according to primary care physician. Lab values showed a creatinine of 1.6. His Lasix was held. Repeat blood test to be obtained. GENERAL EXAM: Patient is alert and oriented and doesn't appear to be in any acute distress HEENT: Normocephalic. Normal reaction of pupils, equal size, normal range of extraocular motion. No erythema or exudates in the throat. NECK: No masses, no nuchal rigidity. CHEST: No chest wall deformity. LUNGS: Equal air entry with no crackles or wheeze. HEART: S1 and S2 normal with no audible mumurs or gallops. Regular rhythm, femorals equal on both sides.. ABDOMEN: No hepatosplenomegaly, normal bowel sounds, no guarding or rigidity. SKIN: No rashes CENTRAL NERVOUS SYSTEM: No focal deficits. EXTREMITIES: No cyanosis, clubbing or edema. Final impression: #1. Atypical fibrillation with RVR #2 shocks from AICD and response to A. fib with RVR #3. CAT scan evidence of pulmonary emboli. #4. Increased creatinine. Most probably from diuretics. Plan: We'll check his BMP today. Increase activity. Continue current medical therapy.
[2018-07-09 12:41] LABS: Calcium 8.5 mg/dL (8.4-10.2); Potassium 4.6 mmol/L (3.5-5.1)
--- NOTE | 2018-07-09 13:52 | P.PN ---
Subjective Progress Note Date: 07/09/18 Principal diagnosis: Pulmonary emboli, in the left lung, on oral anticoagulation in the form of delta, AICD discharge 72-year-old white male patient of Dr. Massey into the hospital on 07/06/2018 for complaints of pain and discomfort in his right leg, AICD discharge. Patient had a CT angiogram of the chest in [facility] which showed pulmonary emboli in the left lung 2. Patient had been on oral anticoagulation form of Xarelto, and patient was compliant with his medication according to him. Since admission to the hospital patient had been switched to oral Eliquis. He is hemodynamically stable, these do not feel any acute distress. His shortness of breath, denies chest pain, no chest discomfort, no palpitations. No cough wheezing or phlegm production. Today's on 07/09/2016 patient seen in follow-up on selective care unit, he uses, comfortable, sitting up on the edge of the bed, denies any complaints, ultrasound Doppler of the right lower extremity was negative for DVT. Today's labs have been reviewed, BNP was done only, sodium was 142, potassium is 4.6, chloride is 102, CO2 is 34, B1 is 32 creatinine is 1.13. Sounds reveal a few scattered crackles at the bases, no rhonchi or wheezing. Device has been interrogated, he is on oral amiodarone 200 mg 3 times a day, he follows [facility], he had arterial duplex studies of the leg the results are pending. From our perspective he stable Objective - Vital Signs Vital signs: Vital Signs Temp 98.3 F 07/09/18 12:10 Pulse 61 07/09/18 12:10 Resp 18 07/09/18 12:10 BP 117/68 07/09/18 12:10 Pulse Ox 98 07/09/18 12:10 Intake & Output 07/08/18 07/09/18 07/09/18 18:59 06:59 18:59 Intake Total 1020 480 Output Total 500 300 Balance 520 180 Weight 90.9 kg Intake: Oral 1020 480 Output: Urine 500 300 Other: # Voids 2 1 - Exam GENERAL EXAM: Alert, pleasant, 72-year-old obese white male, comfortable in no apparent distress. HEAD: Normocephalic/atraumatic. EYES: Normal reaction of pupils, equal size. Conjunctiva pink, sclera white. NOSE: Clear with pink turbinates. THROAT: No erythema or exudates. NECK: No masses, no JVD, no thyroid enlargement, no adenopathy. CHEST: No chest wall deformity. Symmetrical expansion. LUNGS: Equal air entry with few bibasilar crackles CVS: Regular rate and rhythm, normal S1 and S2, no gallops, no murmurs, no rubs ABDOMEN: Soft, nontender. No hepatosplenomegaly, normal bowel sounds, no guarding or rigidity. EXTREMITIES: No clubbing, no edema, no cyanosis, 2+ pulses and upper and lower extremities. MUSCULOSKELETAL: Muscle strength and tone normal. SPINE: No scoliosis or deformity SKIN: No rashes CENTRAL NERVOUS SYSTEM: Alert and oriented -3. No focal deficits, tone is normal in all 4 extremities. PSYCHIATRIC: Alert and oriented -3. Appropriate affect. Intact judgment and insight. - Labs CBC & Chem 7: 07/08/18 06:04 07/09/18 11:28 Labs: Abnormal Lab Results - Last 24 Hours (Table) 07/09/18 Range/Units 11:28 Carbon Dioxide 34 H (22-30) mmol/L BUN 32 H (9-20) mg/dL Assessment and Plan Plan: Assessment: #1. Acute pulmonary embolisms, in the left lung 2, on oral anticoagulation as a relative, and presumably patient was compliant with his anticoagulation #2. AICD discharge at home, and interrogation of the ICD was done, and apparently this was in response to A. fib RVR #3. History of chronic atrial fibrillation #4. Numbness and pain in the right lower extremity, venous Doppler ultrasound was negative for DVT, patient has a arterial Doppler, and the results are pending #5. Cardiomyopathy #6. DJD #7. Hypertension Plan: Pulmonary perspective patient remains stable, vital signs are stable, no shortness of breath or chest pain, he has been switched from Xarelto to Eliquis. His venous Doppler of the right lower extremity was negative for DVT, arterial Dopplers were done of right leg in regards to numbness and pain in the right lower extremity. No further recommendations from pulmonary perspective. Stable for discharge when cleared by cardiology I performed a history & physical examination of the patient and discussed their management with my nurse practitioner, Magnolia Cole. I reviewed the nurse practitioner's note and agree with the documented findings and plan of care. Lung sounds are positive for a few scattered rales at the bases. The findings and the impression was discussed with the patient. I attest to the documentation by the nurse practitioner. Time with Patient: Less than 30
--- NOTE | 2018-07-09 14:11 | P.PN ---
Subjective Progress Note Date: 07/09/18 Interval history:Patient is a 72-year-old male with a known history of ischemic cardiomyopathy ejection fraction 20-25% status post AICD, paroxysmal atrial fibrillation on anticoagulation with xarelto and osteoarthritis initially presented to [facility] with complaints of AICD discharge 3 at home. Patient says that she felt severe squeezing pain at the right calf and leg when he woke up in the morning yesterday. Patient felt numb and could not feel anything. He felt tightness in the leg and could not able to get up and has crawled to the door. At the same time he had AICD discharge 3. Eventually patient reached his porch and was waving to help. One of the truck car and bus cleaner help him and EMS was called. Patient was initially taken to [facility]. Patient denied any complaints of chest pain or shortness of breath. EKG done at [facility] showed normal sinus rhythm. No ST-T wave elevation. D- dimer is elevated. Patient had CT angiogram of the chest which showed left upper lobe first branch 2 cm pulmonary embolus and also small lower lobe embolus. There is also concern for apical cardiac thrombus. Patient was also found have 4.2 cm ascending aortic aneurysm. Patient was transferred to [facility] for further management with 2-D echocardiogram and cardiology evaluation. Lower extremity venous duplex scan showed no acute DVT in the right lower extremity. Technologist notes no visualized flow in the portions of right common femoral and superficial femoral arteries likely product of underlying PAD. Troponin 0.926 and 0.655 07/09/18 echo reported severely impaired LV function, EF 20-25%, [id number] aortic regurgitation, mild pulmonary hypertension without evidence of thrombus.Anticoagulated on Eliquis. Maintained on amiodarone. Pacemaker interrogated yesterday, final report pending. Lower extremity ultrasound completed, results pending .Vascular surgery evaluation pending. Lasix held, creatinine significantly improved, 1.13. Evaluated by hematology Objective - Vital Signs Vital signs: Vital Signs Temp 98.3 F 07/09/18 12:10 Pulse 61 07/09/18 12:10 Resp 18 07/09/18 12:10 BP 117/68 07/09/18 12:10 Pulse Ox 98 07/09/18 12:10 Intake & Output 07/08/18 07/09/18 07/09/18 18:59 06:59 18:59 Intake Total 1020 480 Output Total 500 300 Balance 520 180 Weight 90.9 kg Intake: Oral 1020 480 Output: Urine 500 300 Other: # Voids 2 1 - Exam PHYSICAL EXAM: VITAL SIGNS: As above GENERAL: Sitting up at side of bed, no acute distress. HEENT: Conjunctivae normal. eyes normal. Oral mucosa moist. NECK: No JVD. No thyroid enlargement. No LNs CARDIOVASCULAR: S1, S2 muffled. Systolic murmur. RESPIRATION: Breath sounds diminished in the bases. Occasional Fine bibasilar crackles. No rhonchi. ABDOMEN: Soft, nontender . No guarding. no masses palpable.Bowel sounds heard. LEGS: No edema. no swelling, PSYCHIATRY: Alert and oriented -3, mood and affect normal. NERVOUS SYSTEM: Cranial N 2-12 grossly normal. Moves all 4 limbs. No focal deficits. Skin: no rash Joints: No active swelling. No inflammation. - Labs CBC & Chem 7: 07/08/18 06:04 07/09/18 11:28 Labs: Abnormal Lab Results - Last 24 Hours (Table) 07/09/18 Range/Units 11:28 Carbon Dioxide 34 H (22-30) mmol/L BUN 32 H (9-20) mg/dL Assessment and Plan Assessment: Acute left upper lobe 2 cm pulmonary embolus despite being on anticoagulation with xarelto, Status post AICD discharge 3 Right lower extremity pain possible peripheral vascular disease. Duplex scan negative for DVT. Ascending aortic aneurysm 4.2 cm Ischemic cardiomyopathy ejection fraction 20%.Status post AICD Previous history of smoking Elevated d-dimer Elevated troponin likely due to AICD firing. Osteoarthritis Mild to moderate aortic regurgitation Plan: Continue on current medication regime ,monitoring and symptomatic treatment. Vascular consult in place with recommendations pending. Evaluated by hematology with recommendations noted. Anticoagulation with Eliquis. Xa relto failure unclear. Protonix added for GI prophylaxis. Further recommendations to follow. The impression and plan of care has been dictated as directed. : I performed a history and examination of this patient, discussed the same with the dictator. I agree with the dictator's note ,documented as a scribe. Any additional findings or plans will be noted.
[2018-07-09] MEDS ORDERED: PANTOPRAZOLE 40 MG/10 ML VIAL IVP SCH (14:15)
--- NOTE | 2018-07-09 16:36 | XR ---
EXAMINATION TYPE: XR lumbar spine 2 or 3V DATE OF EXAM: 07/09/2018 COMPARISON: 11/03/2017 HISTORY: 72-year-old male with back and leg pain TECHNIQUE: 3 views FINDINGS: 5 lumbar type vertebral bodies. Facet arthropathy mid to lower lumbar spine. Mild multilevel degenera tive disc disease with variable mild disc height loss. Vertebral body heights are preserved and align ment is maintained. Endplate spondylosis noted in the lower thoracic spine and thoracolumbar junction . IMPRESSION: Mild multilevel degenerative disc disease. Facet arthropathy mid to lower lumbar spine. Endplate spon dylosis lower thoracic spine. Osteopenia. No vertebral compression collapse or malalignment.
[2018-07-09] MEDS: PANTOPRAZOLE 40 MG TABLET PO SCH (17:40)
[2018-07-09 18:09] LABS: Basophils % (A) 0 %; Eosinophils # (A) 0.3 k/uL (0-0.7); Eosinophils % (A) 3 %; HCT 41.8 % (39.0-53.0); HGB 12.8 gm/dL (13.0-17.5); Hypochromasia Marked; Lymphocytes # (A) 0.8 k/uL (1.0-4.8); Lymphocytes % (A) 10 %; MCH 29.7 pg (25.0-35.0); MCHC 30.6 g/dL (31.0-37.0); Mean Platelet Volume 6.9; Monocytes # (A) 0.9 k/uL (0-1.0); Monocytes % (A) 10 %; Neutrophils # (A) 6.4 k/uL (1.3-7.7); Neutrophils % (A) 74 %; Platelet Count 173 k/uL (150-450); RBC 4.31 m/uL (4.30-5.90); RDW 15.5 % (11.5-15.5); WBC 8.6 k/uL (3.8-10.6)
--- NOTE | 2018-07-09 18:09 | CONS ---
CONSULTATION This is a 72-year-old male who has been admitted to [facility] with history of ischemic cardiomyopathy with ejection fraction of 20 to 25%. Status post AICD. Atrial fibrillation and on anticoagulation with Xarelto which has been switched to use Eliquis. The patient had pain in his right calf and right leg when he woke up in the morning when he was at home and patient was transferred to [facility]. The patient was transferred to [facility] and the patient had ultrasound which shows no evidence of DVT but femoral and common femoral had occlusion. The patient also was diagnosed with pulmonary embolism. PHYSICAL EXAMINATION: Patient was seen in his room. He has very short of breath and has nasal oxygen. Vascular examination: The brachial radial pulses are present. On the left femoral is 2+. Right side is not palpable. Patient has a faint Doppler on the dorsal pedis on the left foot. Right foot has no Doppler signal, but there is a decent capillary refill. Motor functions are intact. PLAN: Angiogram. Patient is on Eliquis. We may be doing a CT angiogram of the abdomen and pelvis with runoff. The patient under care of Respiratory and Cardiology. We will discuss with hospitalist for further management. Follow with you. Thank you for the consultation. MMSAVANAL / IJN: [id number] /
[2018-07-09 18:21] LABS: INR 1.2 (<1.2); Partial Thromboplastin Time 27.1 sec (22.0-30.0)
[2018-07-09] MEDS ORDERED: HEPARIN SODIUM,PORCINE 5,000 UNIT/ML 1 ML VIAL IV ONE (20:30)
[2018-07-09] MEDS ORDERED: HEPARIN SODIUM,PORCINE 5,000 UNIT/ML 1 ML VIAL IV PRN (20:30)
[2018-07-09] MEDS: HEPARIN SOD,PORK IN 0.45% NACL 25,000 UNIT in 0.45% NACL 1 250ML.BAG IV SCH (20:46)
--- NOTE | 2018-07-09 23:15 | P.PN ---
Subjective Progress Note Date: 07/09/18 Principal diagnosis: New Pulm Emboli Discussed coverage and copay 30$ with patient Objective - Vital Signs Vital signs: Vital Signs Temp 98.3 F 07/09/18 12:10 Pulse 61 07/09/18 12:10 Resp 18 07/09/18 12:10 BP 117/68 07/09/18 12:10 Pulse Ox 98 07/09/18 12:10 Intake & Output 07/08/18 07/09/18 07/09/18 18:59 06:59 18:59 Intake Total 1020 480 Output Total 500 300 Balance 520 180 Weight 90.9 kg Intake: Oral 1020 480 Output: Urine 500 300 Other: # Voids 2 1 - Exam Gen: No Acute distress, Neck Supple HEad NCNT Heart: Irr IRr No palpable Lymphadenopathy Abdomen: obese, soft Lungs: DIminished bases no increased effort Extremities: Edema Bilateral - Labs CBC & Chem 7: 07/09/18 17:45 07/09/18 11:28 Labs: Abnormal Lab Results - Last 24 Hours (Table) 07/09/18 Range/Units 11:28 Carbon Dioxide 34 H (22-30) mmol/L BUN 32 H (9-20) mg/dL Assessment and Plan Plan: Assessment and Recommendations: 1. Pulmonary Emboli: New findings diagnosed at outside Hospital - While on Xarelto 15mg PO Daily, unknown failure as unknown on how adherent as he states he does not know if he actually takes them daily - LE dopplers reviewed - Will change to full dose anticoagulation with Eliquis 10mg PO BID x7 days, then 5mg PO BID 2. Acute renal Insufficiency: - ELiquis treatment preferred choice with mild renal elevation - Monitoring daily 3. Complicated Cardiac History with A-fib: - Cardiology is following Education to and patient on Eliquis and the importance of adherence. Understanding stated, remediation likely needed Physician Attest: I have completed the full history and physical and devloped the complete impression and plan and agree with above dictation, dictated as a scribe
[2018-07-10 03:57] LABS: Basophils % (A) 1 %; Eosinophils # (A) 0.3 k/uL (0-0.7); Eosinophils % (A) 4 %; HCT 38.4 % (39.0-53.0); HGB 11.9 gm/dL (13.0-17.5); Hypochromasia Marked; Lymphocytes # (A) 0.9 k/uL (1.0-4.8); Lymphocytes % (A) 12 %; MCHC 31.1 g/dL (31.0-37.0); MCV 96.6 fL (80.0-100.0); Mean Platelet Volume 7.1; Monocytes # (A) 0.8 k/uL (0-1.0); Monocytes % (A) 11 %; Neutrophils # (A) 5.5 k/uL (1.3-7.7); Neutrophils % (A) 70 %; Platelet Count 150 k/uL (150-450); RBC 3.98 m/uL (4.30-5.90); RDW 15.6 % (11.5-15.5); WBC 7.8 k/uL (3.8-10.6)
[2018-07-10] MEDS: CARVEDILOL 12.5 MG TAB PO SCH ×2 (06:47→17:59)
[2018-07-10] MEDS: PANTOPRAZOLE 40 MG TABLET PO SCH (06:47)
[2018-07-10] MEDS: AMIODARONE 200 MG TAB PO SCH ×3 (09:55→22:00)
[2018-07-10] MEDS: ASPIRIN 81 MG PO SCH (09:55)
--- NOTE | 2018-07-10 12:55 | P.PN ---
Subjective Progress Note Date: 07/10/18 This is a 72-year-old gentleman was admitted to the hospital with complaints of numbness number right leg and also evidence of firing from the device is an AICD. He was found to have false shocks related to A. fib with RVR. Patient was initiated on amiodarone. Patient is also found to have pulmonary emboli. Patient is on Eliquis 10 mg by mouth twice a day. Patient is evaluated by Dr. Holley. His going have an angiogram. Patient otherwise clinically stable. No arrhythmias Objective - Vital Signs Vital signs: Vital Signs Temp 98.4 F 07/10/18 12:00 Pulse 59 L 07/10/18 12:00 Resp 18 07/10/18 12:00 BP 121/74 07/10/18 12:00 Pulse Ox 97 07/10/18 12:00 Intake & Output 07/09/18 07/10/18 07/10/18 18:59 06:59 18:59 Intake Total 720 114.358 240 Output Total 1100 250 100 Balance -380 -135.642 140 Weight 92.3 kg Intake: Intake, IV Titration 114.358 Amount Heparin Sod,Pork in 0.45% 114.358 NaCl 25,000 unit In 0.45 % NaCl 1 250ml.bag @ 11 UNITS/KG/HR 9.999 mls/hr IV .Q24H [facility] Rx#: [id number] Oral 720 240 Output: Urine 1100 250 100 Other: Voiding Method Urinal Urinal - Exam GENERAL EXAM: Patient is alert and oriented and doesn't appear to be in any acute distress HEENT: Normocephalic. Normal reaction of pupils, equal size, normal range of extraocular motion. No erythema or exudates in the throat. NECK: No masses, no nuchal rigidity. CHEST: No chest wall deformity. LUNGS: [Equal air entry with no crackles or wheeze.] HEART: [S1 and S2 normal with no audible mumurs or gallops. Regular rhythm, femorals equal on both sides..] ABDOMEN: No hepatosplenomegaly, normal bowel sounds, no guarding or rigidity. SKIN: No rashes CENTRAL NERVOUS SYSTEM: No focal deficits. EXTREMITIES: [No cyanosis, clubbing or edema.] - Labs CBC & Chem 7: 07/10/18 03:37 03/14/19 11:28 Labs: Abnormal Lab Results - Last 24 Hours (Table) 07/09/18 07/09/18 07/10/18 Range/Units 17:45 17:45 03:37 RBC 3.98 L (4.30-5.90) m/uL Hgb 12.8 L 11.9 L (13.0-17.5) gm/dL Hct 38.4 L (39.0-53.0) % MCHC 30.6 L (31.0-37.0) g/dL RDW 15.6 H (11.5-15.5) % Lymphocytes # 0.8 L 0.9 L (1.0-4.8) k/uL INR 1.2 H (<1.2) APTT (22.0-30.0) sec 07/10/18 07/10/18 Range/Units 03:37 10:34 RBC (4.30-5.90) m/uL Hgb (13.0-17.5) gm/dL Hct (39.0-53.0) % MCHC (31.0-37.0) g/dL RDW (11.5-15.5) % Lymphocytes # (1.0-4.8) k/uL INR (<1.2) APTT 38.7 H 38.2 H (22.0-30.0) sec Assessment and Plan (1) Bilateral pulmonary embolism Current Visit: Yes Status: Acute Code(s): I26.99 - OTHER PULMONARY EMBOLISM WITHOUT ACUTE COR PULMONALE SNOMED Code(s): 19945429 (2) CAD (coronary artery disease) Current Visit: Yes Status: Acute Code(s): I25.10 - ATHSCL HEART DISEASE OF [place] CORONARY ARTERY W/O ANG PCTRS SNOMED Code(s): 56679824 (3) Defibrillator discharge Current Visit: Yes Status: Acute Code(s): Z45.02 - ENCNTR FOR ADJUST AND MGMT OF AUTOMATIC IMPLNTBL CARD DEFIB SNOMED Code(s): 764489979 (4) Afib Current Visit: No Status: Acute Code(s): I48.91 - UNSPECIFIED ATRIAL FIBRILLATION SNOMED Code(s): 23164419 (5) Cardiomyopathy Current Visit: No Status: Acute Code(s): I42.9 - CARDIOMYOPATHY, UNSPECIFIED SNOMED Code(s): 30705646 (6) HTN (hypertension) Current Visit: No Status: Acute Code(s): I10 - ESSENTIAL (PRIMARY) HYPERTENSION SNOMED Code(s): 45228842 Plan: Patient is clinically stable. Going to have an angiogram tomorrow
[2018-07-10] MEDS: HEPARIN SOD,PORK IN 0.45% NACL 25,000 UNIT in 0.45% NACL 1 250ML.BAG IV SCH (18:17)
[2018-07-10 20:48] VITALS: BP 124/66; PULSE 60; RESP 15; TEMP 98.7
--- NOTE | 2018-07-15 10:46 | P.ARTDOP ---
Arterial Doppler LOWER EXTREMITY ARTERIAL DOPPLER: DATE OF SERVICE: 07/07/2018 Reason for study: Right leg pain Doppler waveforms: Multiphasic at the left femoral and popliteal and atypical below. Atypical at the right femoral and popliteal. Pulse volume recording: Normal on the left. Poor waveforms throughout on the right.. Pressure gradients: No good pressure readings on the right. Mild pressure differential on the distal left. Ankle-brachial indices: None recorded on the right. 0.97 on the left.. Toe pressures: 0 on the right, 52 on the left Impression: The left side has only mild distal disease. Severe right iliofemoral occlusive process. Clinical correlation recommended..
[2018-07-15] MEDS ORDERED: APIXABAN 5 MG TAB PO SCH (21:00)
== END 2018-07-10 22:46 | disposition short-term general hospital (02) | DRG 176 ==
LOC: EC 16:02 → 3SCARD 16:51
PROVIDERS: ADMIT Hospitalist; ATTEND Hospitalist
DX: I26.99 Other pulmonary embolism without acute cor pulmonale (principal); I25.82 Chronic total occlusion of coronary artery; I27.20 Pulmonary hypertension, unspecified; I71.2 Thoracic aortic aneurysm, without rupture; I48.0 Paroxysmal atrial fibrillation; I25.5 Ischemic cardiomyopathy; I35.1 Nonrheumatic aortic (valve) insufficiency; I10 Essential (primary) hypertension; N28.9 Disorder of kidney and ureter, unspecified; I25.10 Atherosclerotic heart disease of native coronary artery without angina pectoris; M19.90 Unspecified osteoarthritis, unspecified site; R77.8 Other specified abnormalities of plasma proteins; E66.9 Obesity, unspecified; Z68.34 Body mass index [BMI] 34.0-34.9, adult; I25.2 Old myocardial infarction; Z91.14 Patient's other noncompliance with medication regimen; Z79.01 Long term (current) use of anticoagulants; Z79.899 Other long term (current) drug therapy; Z95.810 Presence of automatic (implantable) cardiac defibrillator; Z87.891 Personal history of nicotine dependence; Z90.49 Acquired absence of other specified parts of digestive tract; Z83.2 Family history of diseases of the blood and blood-forming organs and certain disorders involving the immune mechanism; W19.XXXA Unspecified fall, initial encounter
CPT/HCPCS: 36415; 72100; 80048; 80053; 80061; 83735; 84100; 84484; 85025; 85610; 85730; 93306; 93923; 94760; 99291